=== PATIENT | male | born 1960 ===

== ENCOUNTER → 2021-10-30 | Outpatient (CLI) | payer SELFPAY ==
[2021-10-30 09:59] LABS: BASOPHILS ABSOLUTE AUTO 0.06 K/mm3 (0.00-0.23); BASOPHILS PERCENT AUTO 1 % (0-2); EOSINOPHILS ABSOLUTE AUTO 0.27 K/mm3 (0.00-0.68); EOSINOPHILS PERCENT AUTO 2 % (0-6); Hemoglobin 16.2 g/dL (13.5-17.5); IMMATURE GRAN ABSOLUTE AUTO 0.05 K/mm3 (0.00-0.10); IMMATURE GRAN PERCENT AUTO 0 % (0-1); LYMPHOCYTES PERCENT AUTO 13 % (21-46); MONOCYTES ABSOLUTE AUTO 0.83 K/mm3 (0.16-1.47); MONOCYTES PERCENT AUTO 7 % (4-13); Mean Corpuscular HGB 32.4 pg (26.0-34.0); Mean Corpuscular HGB Conc 35.2 g/dL (31.5-36.5); Mean Corpuscular Volume 92 fL (80-100); Mean Platelet Volume 9.2 fL (9.1-12.4); NEUTROPHILS ABSOLUTE AUTO 9.29 K/mm3 (1.96-9.15); NEUTROPHILS PERCENT AUTO 77 % (41-73); Platelet Count 407 K/mm3 (150-400); RDW Coefficient Variation 13.7 % (11.7-14.2); RDW Standard Deviation 46.4 fL (35.1-46.3)
[2021-10-30 10:14] LABS: Albumin, Blood 3.8 g/dL (3.4-5.0); Albumin/Globulin Ratio 1.2 (0.8-1.8); Bilirubin, Total 0.3 mg/dL (0.1-1.0); Bun/Creatinine Ratio 15.7 (12.0-20.0); Calcium, Blood 8.9 mg/dL (8.5-10.1); Creatinine, Blood 1.02 mg/dL (0.60-1.20); Globulin, Blood 3.3 g/dL (2.2-4.0); Potassium, Blood 4.4 mmol/L (3.5-5.5); Total Protein, Blood 7.1 g/dL (6.4-8.2)
== END | disposition home or self-care (01) ==
LOC: LAB 09:53 → LAB SHORT 09:53
PROVIDERS: Family Medicine
DX: E86.0 Dehydration (principal)
CPT/HCPCS: 80053; 84484; 85025

== ENCOUNTER 2024-02-16 06:08 | Day surgery (SDC) | payer BC ==
[~2024-02-16] VITALS: Ht 177.8 cm; Wt 83.0 kg
[2024-02-16] MEDS ORDERED: Chlorhexidine Mouth Care 15 ML UDC MT SCH (06:45)
[2024-02-16] MEDS ORDERED: Tranexamic Acid 100 ML IV ONE ×2 (06:52→10:27)
[2024-02-16] MEDS ORDERED: NS 50 ML IV ONE (06:53)
[2024-02-16] MEDS ORDERED: Acetaminophen 500 MG Tab ONE (06:53)
[2024-02-16] MEDS ORDERED: Lactated Ringer's 1,000 ML IV ONE ×2 (06:53→07:13)
[2024-02-16] MEDS ORDERED: CeFAZolin Sodium 2,000 MG VIAL ONE (06:53)
[2024-02-16] MEDS ORDERED: QUETIAPINE FUMA5012 PO (06:59)
[2024-02-16] MEDS ORDERED: FentaNYL Citrate 50 MCG/ML 2 ML Injection ONE (07:17)
[2024-02-16] MEDS ORDERED: Midazolam HCl 1MG / ML 2ML Vial ONE (07:17)
[2024-02-16] MEDS ORDERED: OxyCODONE HCL 10 MG TABCR ONE (07:21)
--- NOTE | 2024-02-16 07:26 | NUR ---
02/16/[address] ANDRE Almaraz ORDERED 10MG OF OXYCONTIN TO BE GIVEN PO AT O720 TO PATIENT. PT RECEIVED IT ORALLY WITHOUT PROBLEM.
[2024-02-16] MEDS ORDERED: propofoL 20 ML IV ONE (07:37)
[2024-02-16] MEDS ORDERED: Dexamethasone Sod Phos 10 MG/ML 1ML VIAL ONE (07:51)
[2024-02-16] MEDS ORDERED: SuccINYLCHOLINE Chloride 100 MG/5 ML 5MLSYR ONE (07:51)
[2024-02-16] MEDS ORDERED: Ondansetron HCl 2 MG / ML 2ML Vial ONE ×2 (07:51→10:28)
--- NOTE | 2024-02-16 08:12 | NUR ---
02/16/24 0812 Chintan Mota REDDISH/ PINK RASH NOTED ON AXILLA AREA AND A FEW CIRCULAR PATCHES ON CHEST. DR POWELL & NUZHAT, PEDIATRIC ANESTHESIOLOGIST NOTIFIED. OK TO PROCEED.
[2024-02-16] MEDS ORDERED: Bupivacaine 0.5% HCl 5 MG/ML 30MLVIAL ONE (09:58)
[2024-02-16] MEDS ORDERED: Metoclopramide HCl 5MG / ML 2ML Vial ONE (10:49)
[2024-02-16 10:57] VITALS: BP 161/97
--- NOTE | 2024-02-16 11:13 | NUR ---
02/16/24 1113 ROBEL AGARWAL PT ON 3L O2 SINCE PACU DUE TO PT HAVING NAUSEA AND STILL PRETTY SLEEPY ZOFRAN 4MG IV AND REGLAN 10MG IV GIVEN PER JASON SOMERS ORDERS. ICE PACK BEHIND NECK AND COLD COMPRESS ON HEAD. /MALACHI AT BEDSIDE
== END 2024-02-16 12:23 | disposition home or self-care (01) ==
LOC: ORSCSDS 06:08
PROVIDERS: Orthopaedic Surgery
PROC: 0RRK0JZ Replacement of Left Shoulder Joint with Synthetic Substitute, Open Approach (ICD-10-PCS; principal; 2024-02-16 07:30)
DX: M19.012 Primary osteoarthritis, left shoulder (principal)
CPT/HCPCS: 73030; A9270; C1713; C1776; J0330; J0690; J1100; J2250; J2405; J2704; J2765; J3010; J7120